=== PATIENT | female | born 1985 | race Hispanic/Latino ===

== ENCOUNTER 2019-10-29 13:40 | Outpatient (CLI) | payer OTHER ==
--- NOTE | 2019-10-29 15:59 | CT ---
CT Abdomen Pelvis W WO con History: Left flank pain. Left kidney stone. Comparison: None. Findings: The lung bases are clear. No pleural effusion. No nephroureterolithiasis or hydroureteronephrosis. No secondary evidence of a recently passed stone. No urinary bladder calculus. No abnormal urothelial enhancement. No filling defects within the renal calyces, pelvis by, ureters, nor the posterior urinary bladder. The liver, spleen, pancreas, adrenal glands are unremarkable. Gallbladder is unremarkable. Aortic contour is nonaneurysmal. No retroperitoneal periaortic adenopathy. No acute osseous abnormality. Impression: 1. No nephroureterolithiasis or hydroureteronephrosis. No secondary evidence of a recently passed sto ne. 2. No abnormal renal enhancing mass or urothelial mass. 3. No filling defects within the renal calyces, renal pelvis, ureters, nor the posterior urinary blad sanjuanita.
== END 2019-10-29 13:41 | disposition home or self-care (01) ==
LOC: SCSCT 13:40
PROVIDERS: ATTEND Urology
DX: R10.9 Unspecified abdominal pain (principal); R31.9 Hematuria, unspecified
CPT/HCPCS: 74178